=== PATIENT | male | born 1965 ===

== ENCOUNTER → 2021-12-07 | Day surgery (SDC) | payer OTHER ==
[~2021-12-07] VITALS: Ht 180.3 cm; Wt 90.7 kg
[~2021-12-07] MED LIST: LISINOPRIL40 MG PO; PANTOPRAZOLE SO40 MG PO; PAROXETINE HCL40 MG PO; SIMVASTATIN80 MG PO
== END | disposition home or self-care (01) ==
LOC: FAS 09:01
DX: K92.1 Melena (principal); K63.5 Polyp of colon; K57.30 Diverticulosis of large intestine without perforation or abscess without bleeding; K64.8 Other hemorrhoids; I10 Essential (primary) hypertension; E78.00 Pure hypercholesterolemia, unspecified; Z86.010 Personal history of colon polyps; Z72.89 Other problems related to lifestyle; Z87.891 Personal history of nicotine dependence
CPT/HCPCS: J2250; J2704; J7120